=== PATIENT | male | born 1935 | race Caucasian/White ===

== ENCOUNTER → 2020-06-14 | Outpatient (CLI) | payer OTHER ==
[~2020-06-14] MED LIST: ASPI81TA45 PO; ATOR40TA78 PO; CLOP75TA52 PO; CYAN100014 PO; HYDR12.517 PO; LOSA50TA14 PO; LOVA20TA2 PO; METO-264 PO; OMEP-110 PO; POTA15TA9 PO
== END | disposition home or self-care (01) ==
LOC: CVU 15:47
PROVIDERS: ATTEND Registered Nurse
DX: I08.3 Combined rheumatic disorders of mitral, aortic and tricuspid valves (principal); E78.5 Hyperlipidemia, unspecified; I25.10 Atherosclerotic heart disease of native coronary artery without angina pectoris; I11.9 Hypertensive heart disease without heart failure; Z95.1 Presence of aortocoronary bypass graft
CPT/HCPCS: 93306